=== PATIENT | male | born 1960 | race African-American/Black ===

== ENCOUNTER 2020-10-20 08:15 | Outpatient (CLI) | payer OTHER, SELFPAY ==
--- NOTE | ~2020-10-20 | MR_ITS ---
EXAMINATION: MR pelvis wo/w con DATE: 10/20/2020 09:43 INDICATION: Prostate cancer. TECHNIQUE: Magnetic resonance imaging (MRI) of the pelvis was performed without and with 15 mL MultiH ance intravenous contrast. Sequences included axial and coronal FS FIESTA, coronal T2-weighted FS FSE , axial T2-weighted FSE, axial STIR FSE, coronal and axial LAVA, axial dual-echo T1-weighted FSPGR, a nd axial DWI. Postcontrast sequences included coronal LAVA-flex and a time course of axial LAVA. COMPARISON: None. FINDINGS: The prostate is mildly enlarged. There is a 3.9 x 1.8 cm fluid collection between the rectum and pros salgado, likely hematoma. There are no dilated loops of bowel. There are no pathologically enlarged lymp h nodes. There is no free intraperitoneal fluid. There is no osseous malignancy. IMPRESSION: 1. Mildly enlarged prostate. No evidence of metastatic disease. 2. 3.9 x 1.8 cm fluid collection between the rectum and prostate, likely hematoma. Reviewed, dictated and finalized at location A. IMPRESSION: 1. Mildly enlarged prostate. No evidence of metastatic disease. 2. 3.9 x 1.8 cm fluid collection between the rectum and prostate, likely hemato ma.
[2020-10-20 09:15] LABS: Estimated Glomerular Filt Rate > 60
== END 2020-10-20 08:16 | disposition home or self-care (01) ==
PROVIDERS: PCP Internal Medicine; Visit Provider Radiology Radiation Oncology
DX: C61 Malignant neoplasm of prostate (principal); N40.0 Benign prostatic hyperplasia without lower urinary tract symptoms
CPT/HCPCS: 72197; A9577